=== PATIENT | female | born 1965 | race Caucasian/White ===

== ENCOUNTER 2016-07-27 11:24 | Emergency (ER) | payer OTHER ==
[~2016-07-27] VITALS: Ht 162.6 cm; Wt 65.0 kg
[2016-07-27 11:26] VITALS: BP 152/94; PULSE 101; RESP 19; TEMP 98.2; O2SAT 100
--- NOTE | 2016-07-27 11:37 | PD ---
HPI Chief Complaint: Allergic/Adverse Reaction Time Seen by Provider: 11:36 Travel History International Travel<30 days: No Contact w/Intl Traveler<30days: No Traveled to known affect area: No [facility] Past Medical History Medical History: Denies Significant Hx Diminished Hearing: No Tetanus Vaccination: Unknown ?: Not Tubal Ligation: Yes Past Surgical History Surgical History: No Previous Surgery Social History Alcohol Use: Yes (SOCIALLY) Tobacco Use: No Substance Use: No Allergies-Medications (Allergen,Severity, Reaction): Coded Allergies: No Known Allergies (Unverified , 07/27/16) Reported Meds & Prescriptions Reported Meds & Active Scripts Active No Active Prescriptions or Reported Medications Review of Systems Except as stated in HPI: all other systems reviewed are Neg Data Data Last Documented VS Vital Signs Date Time Temp Pulse Resp B/P Pulse Ox O2 Delivery O2 Flow Rate FiO2 07/27/16 11:26 98.2 101 19 152/94 100 MDM Medical Decision Making Medical Screen Exam Complete: Yes Emergency Medical Condition: Yes Scripts No Active Prescriptions or Reported Meds Seema Ashraf July 27, 2016 11:37
[2016-07-27] MEDS ORDERED: SODIUM CHLOR 0.9% 1000 ML INJ 1,000 ML IV SCH (11:40)
[2016-07-27] MEDS ORDERED: diphenhydrAMINE HCL 50 MG/ML VIAL IVP ONE (11:45)
[2016-07-27] MEDS ORDERED: SODIUM CHLORIDE 0.9% FLUSH 10 ML FLUSH IV FLUSH PRN (11:45)
[2016-07-27] MEDS ORDERED: EPINEPHrine HCL (1:1000) 1 MG/ML VIAL IM ONE (11:45)
[2016-07-27] MEDS ORDERED: FAMOTIDINE 20 MG/2 ML VIAL IV PUSH ONE (11:45)
[2016-07-27] MEDS ORDERED: methylPREDNISolone SOD SUCC 125 MG/2 ML VIAL IVP ONE (11:45)
[2016-07-27 11:49] VITALS: BP 105/84; PULSE 103; RESP 17; O2SAT 100
[2016-07-27 12:41] VITALS: BP 123/59; PULSE 85; RESP 17; O2SAT 100
[2016-07-27] MEDS ORDERED: PRED20 PO (13:18)
[2016-07-27] MEDS ORDERED: EPIP0.3I IM (13:18)
[2016-07-27] MEDS ORDERED: BENA25TA3 PO (13:18)
--- NOTE | 2016-07-27 13:19 | PD ---
HPI Chief Complaint: Allergic/Adverse Reaction Time Seen by Provider: 11:29 Travel History International Travel<30 days: No Contact w/Intl Traveler<30days: No Traveled to known affect area: No History of Present Illness HPI 51-year-old female arrives due to swelling and redness of the face. She has swelling of the left lower lip. She reports a wheezy sensation. About 40 minutes prior to ER arrival was bit by several ants. 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 She notes that the swelling of the lip has increased since arrival to the ER. No nausea or vomiting. PFS Past Medical History Medical History: Denies Significant Hx Diminished Hearing: No Tetanus Vaccination: Unknown ?: Not Tubal Ligation: Yes Past Surgical History Surgical History: No Previous Surgery Social History Alcohol Use: Yes (SOCIALLY) Tobacco Use: No Substance Use: No Allergies-Medications (Allergen,Severity, Reaction): Coded Allergies: No Known Allergies (Unverified , 07/27/16) Reported Meds & Prescriptions Reported Meds & Active Scripts Active Benadryl Allergy (Diphenhydramine HCl) 25 Mg Tab 50 Mg PO Q6H PRN Epipen 2-Art Inj (Epinephrine) 0.3 Mg/0.3 Ml Pfpen 0.3 Mg IM ONCE PRN Prednisone 20 Mg Tab 20 Mg PO BID 4 Days Review of Systems Except as stated in HPI: all other systems reviewed are Neg Physical Exam Narrative GENERAL: 51-year-old female well-nourished well-developed SKIN: Focused skin assessment warm/dry. HEAD: Atraumatic. Normocephalic. EYES: Pupils equal and round. No scleral icterus. No injection or drainage. ENT: No nasal bleeding or discharge. Mucous membranes pink and moist. Generalized swelling of the lower lip c/w angioedema. Posterior oropharynx is widely patent. NECK: Trachea midline. No JVD. CARDIOVASCULAR: Regular rate and rhythm. No murmur appreciated. RESPIRATORY: No accessory muscle use. Clear to auscultation. Breath sounds equal bilaterally. GASTROINTESTINAL: Abdomen soft, non-tender, nondistended. Hepatic and splenic margins not palpable. MUSCULOSKELETAL: No obvious deformities. No clubbing. No cyanosis. No edema. NEUROLOGICAL: Awake and alert. No obvious cranial nerve deficits. Motor grossly within normal limits. Normal speech. PSYCHIATRIC: Appropriate mood and affect; insight and judgment normal. Data Data Last Documented VS Vital Signs Date Time Temp Pulse Resp B/P Pulse Ox O2 Delivery O2 Flow Rate FiO2 07/27/16 14:14 80 17 103/60 98 Room Air 07/27/16 11:49 2 07/27/16 11:26 98.2 VS reviewed Orders Ecg Monitoring (07/27/16 11:40) Iv Access Insert/Monitor (07/27/16 11:40) Oximetry (07/27/16 11:40) Diphenhydramine Inj (Benadryl Inj) (07/27/16 11:45) Methylprednisolone So Succ Inj (Solumedr (07/27/16 11:45) Famotidine Inj (Pepcid Inj) (07/27/16 11:45) Sodium Chlor 0.9% 1000 Ml Inj (Ns 1000 M (07/27/16 11:40) Sodium Chloride 0.9% Flush (Ns Flush) (07/27/16 11:45) Epinephrine (1:1000) Inj (Adrenalin (1:1 (07/27/16 11:45) MDM Medical Decision Making Medical Screen Exam Complete: Yes Emergency Medical Condition: Yes Medical Record Reviewed: Yes Differential Diagnosis Angioedema, anaphylactic shock, allergic reaction Narrative Course Benadryl Pepcid epinephrine and slight Medrol given. Patient improved within minutes. She'll be monitored here for 3 hours. If stability and her ongoing improvement is observed she'll be discharged home with plan for outpt follow up. Patient reassessed at 2:30 PM and her symptoms have essentially resolved although there is a trace amount of lower lip swelling. We talked about rebound allergic response and the patient demonstrates understanding and has verbalized agreement to return expeditiously. Follow-up with primary care provider in 2 days. EpiPen instructions given. Critical Care Narrative Aggregate critical care time was 35 minutes. Time to perform other separately billable procedures was not included in the critical care time. My time did not include minutes spent treating any other patients simultaneously or on activities that did not directly contribute to the patient's treatment. The services I provided to this patient were to treat and/or prevent clinically significant deterioration that could result in: asphyxia, hypoxia I provided critical care services requiring my management, as noted below: Chart data review, documentation time, medication orders and management, vital sign assessments/reviewing monitor data, ordering and reviewing lab tests, ordering and interpreting/reviewing x-rays and diagnostic studies, care of the patient and discussion of the patient with the admitting physicians. Diagnosis Primary Impression: Anaphylactic reaction Qualified Code: T78.2XXA - Anaphylactic reaction, initial encounter Referrals: Primary Care Physician 2 days Additional Instructions: You have a choice when it comes to health care, and we are glad that you chose [facility]. Hopefully, we have met your expectations on today's visit. You are welcome to return to [facility] at any time, as we are committed to meeting the health care needs of our community. Med/Other Pt SpecificInfo: Prescription(s) given Scripts Diphenhydramine (Benadryl Allergy)25 Mg Tab50 Mg PO Q6H PRN (ALLERGIES) #20 TAB Ref 0 Prov:Rudy Deleon MD 07/27/16 Epinephrine Inj (Epipen 2-Art Inj)0.3 Mg/0.3 Ml Pfpen0.3 Mg IM ONCE PRN ( ALLERGIC REACTION) #1 PACK Ref 0 Prov:Rudy Deleon MD 07/27/16 Prednisone 20 Mg Tab20 Mg PO BID 4 Days Ref 0 Prov:Rudy Deleon MD 07/27/16 Disposition: 01 DISCHARGE HOME Condition: Stable Rudy Deleon MD July 27, 2016 13:19
[2016-07-27 14:14] VITALS: BP 103/60; PULSE 80; RESP 17; O2SAT 98
[2016-07-27 14:54] VITALS: BP 113/73
== END 2016-07-27 15:17 | disposition home or self-care (01) ==
LOC: NEPC 11:24
DX: T78.2XXA Anaphylactic shock, unspecified, initial encounter (principal); T63.421A Toxic effect of venom of ants, accidental (unintentional), initial encounter
CPT/HCPCS: 96361; 96372; 96374; 96375; 99291; J0171; J1200; J2930; J7030